=== PATIENT | female | born 1985 | race Caucasian/White ===

== ENCOUNTER 2022-07-21 17:24 | Outpatient (CLI) | payer OTHER, SELFPAY ==
[2022-07-21 17:49] LABS: Basophils Absolute Auto 0.01 K/uL (0.00-0.30); Basophils Percent Auto 0.1 % (0.0-3.0); Eosinophils Absolute Auto 0.27 K/uL (0.00-0.50); Eosinophils Percent Auto 3.5 % (0.0-7.0); Hematocrit 41.2 % (33.0-51.0); Lymphocytes Absolute Auto 2.08 K/uL (0.90-2.90); Lymphocytes Percent Auto 27.2 % (20-44); Mean Corpuscular HGB Conc 34 gm/dL (32-36); Mean Corpuscular Hemoglobin 30 pg (26-34); Mean Corpuscular Volume 87 fL (80-100); Monocytes Absolute Auto 0.58 K/UL (0.00-0.90); Monocytes Percent Auto 7.6 % (0.0-11.0); Neutrophils Absolute Auto 4.71 K/uL (1.7-7.0); Neutrophils Percent Auto 61.6 % (42.0-72.0); Platelet Count* 254 K/uL (140-440); Red Blood Count 4.74 m/uL (4.00-5.20); White Blood Count* 7.65 K/uL (4.50-11.00)
[2022-07-21 17:52] LABS: Slide Review Reflex No
[2022-07-21 17:55] LABS: Hemoglobin A1C* 5.8 % (0-5.6)
[2022-07-21 21:34] LABS: Albumin* 4.6 g/dL (3.3-5.0); Chloride* 100 mmol/L (96-114); Sodium* 137 mmol/L (135-149)
[2022-07-21 21:37] LABS: Alanine Aminotransferase* 21 U/L (4-35); Alkaline Phosphatase* 102 U/L (40-150); Aspartate Amino Transferase* 22 U/L (12-35); Bilirubin Total* 0.3 mg/dL (0.1-1.5); Blood Urea Nitrogen* 13 mg/dL (5-24); Calcium* 9.4 mg/dL (8.4-10.6); Carbon Dioxide* 24 mmol/L (20-32); Creatinine* 0.7 mg/dL (0.5-1.5); Estimated Glomerular Filt Rate 113 ml/min; Glucose* 128 mg/dL (60-115); Total Protein* 7.4 g/dL (6.0-8.3)
== END 2022-07-21 17:25 | disposition home or self-care (01) ==
LOC: LKVREF 17:29
PROVIDERS: PCP Physician Assistant Medical; Visit Provider Physician Assistant Medical
DX: R23.3 Spontaneous ecchymoses (principal); R73.09 Other abnormal glucose
CPT/HCPCS: 80053; 83036; 85025

== ENCOUNTER 2023-03-09 16:44 | Outpatient (CLI) | payer OTHER, SELFPAY | END 2023-03-09 16:45 | disposition home or self-care (01) | PROVIDERS: PCP Physician Assistant Medical; Visit Provider Physician Assistant Medical | DX: Z00.00 Encounter for general adult medical examination without abnormal findings (principal); L70.9 Acne, unspecified; R79.89 Other specified abnormal findings of blood chemistry; R73.09 Other abnormal glucose; G47.00 Insomnia, unspecified; K59.00 Constipation, unspecified; R10.9 Unspecified abdominal pain; Z13.6 Encounter for screening for cardiovascular disorders | CPT/HCPCS: 80053; 80061; 83690; 84146; 84443 ==

== ENCOUNTER 2023-06-18 08:47 | Outpatient (CLI) | payer OTHER, SELFPAY | END 2023-06-18 08:48 | disposition home or self-care (01) | LOC: NFLDREF 06-19 07:04 | PROVIDERS: PCP Physician Assistant Medical; Referring Provider Physician Assistant Medical; Visit Provider Physician Assistant Medical | DX: E78.5 Hyperlipidemia, unspecified (principal); R73.09 Other abnormal glucose | CPT/HCPCS: 80061 ==

== ENCOUNTER 2023-09-21 17:32 | Outpatient (CLI) | payer OTHER, SELFPAY | END 2023-09-21 17:33 | disposition home or self-care (01) | LOC: LKVREF 17:33 | PROVIDERS: PCP Physician Assistant Medical; Visit Provider Physician Assistant Medical | DX: E78.5 Hyperlipidemia, unspecified (principal) | CPT/HCPCS: 80061 ==

== ENCOUNTER 2023-12-23 08:33 | Outpatient (CLI) | payer OTHER, SELFPAY | END 2023-12-23 08:34 | disposition home or self-care (01) | PROVIDERS: PCP Physician Assistant Medical; Visit Provider Registered Nurse | DX: N93.9 Abnormal uterine and vaginal bleeding, unspecified (principal) | CPT/HCPCS: 84146; 84439; 84443; 84480 ==

== ENCOUNTER 2023-12-30 07:08 | Outpatient (CLI) | payer OTHER, SELFPAY ==
--- NOTE | 2023-12-30 07:15 | US_ITS ---
Final Report Patient: DELL MORTENSEN Facility:?[facility] Patient ID:?[id number] Site Patient ID:?[id number]. Site :?[id number] Study:?US Pelvis TRANSABDOMINAL AND TRANSVAGINAL-12/30/2023 7:54:21 AM Ordering Physician:?GRACY SHOOK Final Report: INDICATION: Abnormal uterine and vaginal bleeding. TECHNIQUE: Transabdominal and transvaginal pelvic ultrasound. FINDINGS: Uterus is anteverted and measures 9.9 x 4.0 x 5.6 cm. Endometrial stripe thickness is normal at 6 mm. Both ovaries appear normal and have normal color flow. No adnexal mass or free fluid. IMPRESSION: Normal pelvic ultrasound. Dictated by Mahesh Montaño MD @ 12/30/2023 9:05:46 AM (Electronic Signature)
== END 2023-12-30 07:09 | disposition home or self-care (01) ==
LOC: US 07:08
PROVIDERS: PCP Physician Assistant Medical; Visit Provider Registered Nurse
DX: N93.9 Abnormal uterine and vaginal bleeding, unspecified (principal)
CPT/HCPCS: 76830; 76856

== ENCOUNTER 2024-02-03 07:52 | Outpatient (CLI) | payer OTHER, SELFPAY | END 2024-02-03 07:53 | disposition home or self-care (01) | LOC: NFLDREF 02-05 06:59 | PROVIDERS: PCP Physician Assistant Medical; Referring Provider Physician Assistant Medical; Visit Provider Registered Nurse | DX: Z13.29 Encounter for screening for other suspected endocrine disorder (principal) | CPT/HCPCS: 84443 ==

== ENCOUNTER 2024-03-16 08:41 | Outpatient (CLI) | payer OTHER, SELFPAY | END 2024-03-16 08:42 | disposition home or self-care (01) | PROVIDERS: PCP Physician Assistant Medical; Visit Provider Physician Assistant Medical | DX: E78.5 Hyperlipidemia, unspecified (principal); E11.9 Type 2 diabetes mellitus without complications; Z79.84 Long term (current) use of oral hypoglycemic drugs; Z11.59 Encounter for screening for other viral diseases | CPT/HCPCS: 80053; 80061; 86703; 86803 ==

== ENCOUNTER 2024-04-11 07:42 | Outpatient (CLI) | payer OTHER, SELFPAY ==
--- NOTE | 2024-04-11 09:10 | W.ANESCHARGE ---
Anesthesia Charges Start Date/Time Anesthesia Start Date: 04/11/24 Anesthesia Start Time: 08:45 Stop Date/Time Anesthesia Stop Date: 04/11/24 Anesthesia Stop Time: 09:09
--- NOTE | 2024-04-11 09:12 | W.ANESCHARGE ---
Anesthesia Charges Start Date/Time Anesthesia Start Date: 04/11/24 Anesthesia Start Time: 08:45 Stop Date/Time Anesthesia Stop Date: 04/11/24 Anesthesia Stop Time: 09:09
== END 2024-04-11 07:43 | disposition home or self-care (01) ==
LOC: OP CLINIC 07:43
PROVIDERS: PCP Physician Assistant Medical; Visit Provider Surgery
DX: K21.9 Gastro-esophageal reflux disease without esophagitis (principal); K25.9 Gastric ulcer, unspecified as acute or chronic, without hemorrhage or perforation; K31.7 Polyp of stomach and duodenum
CPT/HCPCS: 00731; 43239; 88305; J2704; J3490

== ENCOUNTER 2024-06-20 08:05 | Outpatient (CLI) | payer OTHER, SELFPAY | END 2024-06-20 08:06 | disposition home or self-care (01) | LOC: LKVREF 08:06 | PROVIDERS: PCP Physician Assistant Medical; Visit Provider Physician Assistant Medical | DX: E11.9 Type 2 diabetes mellitus without complications (principal); Z79.84 Long term (current) use of oral hypoglycemic drugs | CPT/HCPCS: 82043; 82570 ==

== ENCOUNTER 2024-06-30 08:56 | Outpatient (CLI) | payer OTHER, SELFPAY ==
--- NOTE | 2024-06-30 09:15 | CRLHL7_ITS ---
For Patients: As a result of the Century Cures Act, medical imaging exams and procedure reports are released immediately into your electronic medical record. You may view this report before your referring provider. If you have questions, please contact your health care provider. BILATERAL SCREENING MAMMOGRAM WITH COMPUTER-AIDED DETECTION AND TOMOSYNTHESIS TECHNIQUE: CC and MLO views were obtained. These mammographic images have been obtained using full-field digital technique. These mammographic images were interpreted with the benefit of computer-aided detection. Breast Tomosynthesis was used in this interpretation. COMPARISON FILM: 10/03/19. FINDINGS: The breasts are heterogeneously dense, which may obscure small masses IMPRESSION: There is no radiographic evidence for malignancy. ASSESSMENT: BI-RADS Category 1: Negative RECOMMENDATION: Routine screening mammogram in 1 year. A lay language report of this examination will be provided to the patient. Russell Beltran M.D. Diagnostic Radiologist [email or web address] HERMILA/Dictated by: Russell Beltran MD @ 07/01/2024 8:22:00 AM (Electronically Signed)
== END 2024-06-30 08:57 | disposition home or self-care (01) ==
LOC: MAMMO 08:56
PROVIDERS: PCP Physician Assistant Medical; Visit Provider Physician Assistant Medical
DX: Z12.31 Encounter for screening mammogram for malignant neoplasm of breast (principal); R92.2 Inconclusive mammogram
CPT/HCPCS: 77063; 77067

== ENCOUNTER 2024-08-01 07:42 | Outpatient (CLI) | payer OTHER, SELFPAY ==
--- NOTE | 2024-08-01 09:35 | W.ANESCHARGE ---
Anesthesia Charges Start Date/Time Anesthesia Start Date: 08/01/24 Anesthesia Start Time: 09:15 Stop Date/Time Anesthesia Stop Date: 08/01/24 Anesthesia Stop Time: 09:33
== END 2024-08-01 07:43 | disposition home or self-care (01) ==
LOC: OP CLINIC 07:43
PROVIDERS: PCP Physician Assistant Medical; Visit Provider Surgery
DX: K31.89 Other diseases of stomach and duodenum (principal); K25.9 Gastric ulcer, unspecified as acute or chronic, without hemorrhage or perforation; K28.9 Gastrojejunal ulcer, unspecified as acute or chronic, without hemorrhage or perforation
CPT/HCPCS: 00731; 43239; 88305; J2704

== ENCOUNTER 2025-03-22 08:21 | Outpatient (CLI) | payer OTHER, SELFPAY | END 2025-03-22 08:22 | disposition home or self-care (01) | LOC: NFLDREF 03-29 01:28 | PROVIDERS: PCP Physician Assistant Medical; Referring Provider Physician Assistant Medical; Visit Provider Physician Assistant Medical | DX: Z00.01 Encounter for general adult medical examination with abnormal findings (principal); E78.5 Hyperlipidemia, unspecified; F41.8 Other specified anxiety disorders; N93.9 Abnormal uterine and vaginal bleeding, unspecified; Z79.899 Other long term (current) drug therapy | CPT/HCPCS: 80053; 80061; 82306; 82607; 82728; 84443 ==

== ENCOUNTER 2025-06-28 08:52 | Outpatient (CLI) | payer OTHER, SELFPAY | END 2025-06-28 08:53 | disposition home or self-care (01) | PROVIDERS: PCP Physician Assistant Medical; Visit Provider Physician Assistant Medical | DX: E78.5 Hyperlipidemia, unspecified (principal); N93.9 Abnormal uterine and vaginal bleeding, unspecified; E66.9 Obesity, unspecified; R73.09 Other abnormal glucose | CPT/HCPCS: 80061; 80076; 82627; 82670; 83498; 84144; 84146; 84270; 84403; 84443 ==

== ENCOUNTER 2025-08-01 18:17 | Outpatient (CLI) | payer OTHER, SELFPAY ==
--- NOTE | 2025-08-01 18:40 | CRLHL7_ITS ---
For Patients: As a result of the Century Cures Act, medical imaging exams and procedure reports are released immediately into your electronic medical record. You may view this report before your referring provider. If you have questions, please contact your health care provider. INDICATION: BILATERAL SCREENING MAMMOGRAM, ASYMPTOMATIC 39 Y/O F COMPARISON: 06/30/24, 10/03/19 TECHNIQUE: Digital mammogram in CC and MLO projections including computer-aided detection (CAD) and tomosynthesis. BREAST COMPOSITION: The breasts are heterogeneously dense, which may obscure small masses. FINDINGS: No suspicious findings. ASSESSMENT: BI-RADS 1 Negative RECOMMENDATION: Annual screening mammogram. A lay language report of this examination will be provided to the patient. Dictated by: Alejandra Noland MD @ 08/02/2025 13:27:24 (Electronically Signed)
== END 2025-08-01 18:18 | disposition home or self-care (01) ==
LOC: MAMMO 18:17
PROVIDERS: PCP Physician Assistant Medical; Visit Provider Physician Assistant Medical
DX: Z12.31 Encounter for screening mammogram for malignant neoplasm of breast (principal); R92.333 Mammographic heterogeneous density, bilateral breasts
CPT/HCPCS: 77063; 77067